=== PATIENT | female | born 1945 | race Caucasian/White ===

== ENCOUNTER 2017-04-28 05:59 | Inpatient (IN) | payer MEDICARE, OTHER, MEDICAID ==
[2017-04-28] MEDS: CEFAZOLIN 2 GM/50 ML (PMX) 50 ML IVPB (05:30)
[~2017-04-28 05:59] MED LIST: LACTATED RINGER'S 1,000 ML IV*; SOD CHLORIDE 0.9% 1,000 ML IV
[2017-04-28] MEDS ORDERED: EPHEDrine SULFATE 50 MG/5 ML SYG (07:00)
[2017-04-28] MEDS ORDERED: ROCURONIUM 50 MG INJ (07:00)
[2017-04-28] MEDS ORDERED: POLYMYXIN B 500000 UNIT INJ (07:01)
[2017-04-28] MEDS ORDERED: POLYMYXIN/BACITRACIN 1L IRRIG (07:08)
[2017-04-28] MEDS ORDERED: CEFAZOLIN 1 GM INJ (07:22)
[2017-04-28] MEDS ORDERED: PROPOFOL 20 ML (07:22)
[2017-04-28] MEDS ORDERED: morphine SULFATE/PF (10 MG/10 ML) INJ (07:22)
[2017-04-28] MEDS ORDERED: MIDAZOLAM 1 MG/ML 2 ML INJ (07:23)
[2017-04-28] MEDS ORDERED: PHENYLephrine (100 MCG/ML) 5ML SYG ×2 (07:50→08:15)
[2017-04-28] MEDS ORDERED: HETASTARCH 6% NACL 500 ML (08:15)
[2017-04-28] MEDS: POLYMYXIN/BACITRACIN 1L IRRIG IRR (08:20)
[2017-04-28] MEDS: POLYMYXIN B 500000 UNIT INJ IRR (08:20)
[2017-04-28] MEDS: BACITRACIN 50000 UNITS INJ IRR (08:20)
[2017-04-28] MEDS: HIP PAIN COCKTAIL (CEFUROXIME) INJ ×2 (08:30→10:00)
[2017-04-28] MEDS: TRANEXAMIC ACID 1,000 MG in DEXTROSE 5% 100 ML IV ×4 (08:30→10:50)
[2017-04-28] MEDS ORDERED: METOCLOPRAMIDE 10 MG INJ (09:29)
[2017-04-28] MEDS ORDERED: DEXAMETHASONE 4 MG/ML 1 ML INJ (09:29)
[2017-04-28] MEDS ORDERED: KETOROLAC 30 MG INJ (09:29)
[2017-04-28] MEDS ORDERED: ONDANSETRON 4 MG INJ (09:29)
[2017-04-28] MEDS ORDERED: ACETAMINOPHEN 1000MG/100ML IV 100 ML (09:29)
[2017-04-28] MEDS ORDERED: SUGAMMADEX SODIUM 200 MG/2 ML VIAL IV (10:19)
[2017-04-28] MEDS: SOD CHLORIDE 0.9% 1,000 ML IV ×2 (10:55→12:49)
[2017-04-28] MEDS ORDERED: morphine 2 MG INJ IV ×2 (11:00)
[2017-04-28] MEDS ORDERED: ZOLPIDEM 5 MG TAB PO (11:00)
[2017-04-28] MEDS ORDERED: SENNA/DOCUSATE NA (8.6MG/50MG) TAB PO (11:00)
[2017-04-28] MEDS ORDERED: EPHEDrine SULFATE 50 MG/5 ML SYG IV (11:00)
[2017-04-28] MEDS ORDERED: HYDROmorphONE 0.5 MG/0.5 ML SYG IV ×2 (11:00)
[2017-04-28] MEDS ORDERED: NALBUPHINE HCL (10 MG/1 ML) INJ IV (11:00)
[2017-04-28] MEDS ORDERED: NA PHOSPHATE/BIPHOS 133 ML ENEMA PR (11:00)
[2017-04-28] MEDS ORDERED: NACL 0.9% 3 ML SYG IV (11:00)
[2017-04-28] MEDS ORDERED: MEPERIDINE 25 MG INJ IV (11:00)
[2017-04-28] MEDS ORDERED: HYDROCODONE/APAP (5/325) TAB PO (11:00)
[2017-04-28] MEDS ORDERED: ONDANSETRON 4 MG INJ IV ×3 (11:00)
[2017-04-28] MEDS ORDERED: LABETALOL HCL 20MG INJ IV (11:00)
[2017-04-28] MEDS ORDERED: ACETAMINOPHEN 500 MG TAB PO (11:00)
[2017-04-28] MEDS ORDERED: DIPHENHYDRAMINE 50 MG INJ IM (11:00)
[2017-04-28] MEDS ORDERED: oxyCODONE 5 MG TAB PO ×2 (11:00)
[2017-04-28] MEDS ORDERED: NALOXONE (0.4 MG/ML) INJ IV ×2 (11:00)
[2017-04-28] MEDS ORDERED: ALBUMIN HUMAN 5% 250 ML IV (11:00)
[2017-04-28] MEDS ORDERED: CEFAZOLIN 1 GM/50 ML (PMX) 50 ML IVPB (11:00)
[2017-04-28] MEDS ORDERED: DIPHENHYDRAMINE 50 MG INJ IV ×2 (11:00)
[2017-04-28] MEDS: KETOROLAC 30 MG INJ IV ×2 (11:00→17:56)
[2017-04-28] MEDS ORDERED: DIPHENHYDRAMINE 25 MG CAP PO (11:00)
[2017-04-28] MEDS ORDERED: HYDROmorphONE (0.2 MG/ML) 10ML SYG IV ×3 (11:00)
[2017-04-28] MEDS ORDERED: MAGNESIUM HYDROXIDE 30ML CUP PO (11:00)
[2017-04-28] MEDS ORDERED: hydrALAzine 20 MG INJ IV ×2 (11:00→15:00)
[2017-04-28] MEDS: ONDANSETRON 4 MG INJ IV ×3 (11:00→23:03)
[2017-04-28] MEDS ORDERED: FENTAnyl 50 MCG/ML VIAL IV ×3 (11:00)
[2017-04-28] MEDS: ASPIRIN (EC) 325 MG TAB PO (11:32)
[2017-04-28] MEDS: DOCUSATE SODIUM 100 MG CAP PO (11:34)
[2017-04-28] MEDS: CEFAZOLIN 1 GM/50 ML (PMX) 50 ML IVPB ×2 (11:35→19:00)
[2017-04-28 11:36] LABS: HEMATOCRIT 29.4 % (37.0-47.0); HEMOGLOBIN 9.2 g/dl (12.0-16.0)
[2017-04-28 12:14] LABS: ANION GAP 12 (8-16); BLOOD UREA NITROGEN 26 mg/dl (7-20); CALCIUM 8.4 mg/dl (8.4-10.2); CARBON DIOXIDE 26 mmol/L (21-31); CHLORIDE 107 mmol/L (97-110); CREATININE 0.66 mg/dl (0.44-1.00); GLUCOSE 123 mg/dl (70-220); SODIUM 141 mmol/L (135-144)
[2017-04-28] MEDS ORDERED: ROPIVACAINE 0.5 % 30 ML VIAL (12:20)
[2017-04-28] MEDS: HYDROCODONE/APAP (5/325) TAB PO (12:48)
[2017-04-28] MEDS: GABAPENTIN 100 MG CAP GTB ×2 (13:27→20:19)
[2017-04-28] MEDS: oxyCODONE 5 MG TAB PO ×4 (13:27→23:06)
[2017-04-28] MEDS: traMADol 50 MG TAB PO ×2 (14:52→21:50)
[2017-04-28] MEDS: CELECOXIB 200 MG CAP PO (20:19)
[2017-04-28] MEDS ORDERED: ASPIRIN (EC) 325 MG TAB PO (21:00)
[2017-04-29] MEDS: oxyCODONE 5 MG TAB PO ×5 (02:11→21:30)
[2017-04-29] MEDS: KETOROLAC 30 MG INJ IV ×2 (02:11→09:57)
[2017-04-29] MEDS: SOD CHLORIDE 0.9% 1,000 ML IV ×2 (02:11→13:33)
[2017-04-29] MEDS: CEFAZOLIN 1 GM/50 ML (PMX) 50 ML IVPB (02:21)
[2017-04-29] MEDS: ONDANSETRON 4 MG INJ IV (05:04)
[2017-04-29] MEDS: PANTOPRAZOLE (EC) 40 MG TAB PO (05:04)
[2017-04-29 05:37] LABS: ADD MAN DIFF? NO
[2017-04-29 05:43] LABS: WHITE BLOOD COUNT 7.9 10^3/ul (4.8-10.8)
[2017-04-29 05:43] LABS: BASOPHILS % 0.1 % (0.0-2.0); HEMATOCRIT 25.2 % (37.0-47.0); LYMPHOCYTES % 12.8 % (15.0-51.0); MEAN CORPUSCULAR HEMOGLOBIN 26.7 pg (29.0-33.0); MEAN CORPUSCULAR HGB CONC 31.7 g/dl (32.0-37.0); MEAN PLATELET VOLUME 11.3 fl (7.4-10.4); MONOCYTE # 0.9 10^3/ul (0.3-0.9); MONOCYTES % 11.5 % (0.0-11.0); NEUTROPHIL # 5.9 10^3/ul (1.6-7.5); NEUTROPHILS % 75.3 % (39.0-77.0); PLATELET COUNT 147 10^3/UL (140-415); RED CELL DISTRIBUTION WIDTH 14.5 % (11.5-14.5)
[2017-04-29] MEDS ORDERED: KETOROLAC 15 MG INJ INJ (06:00)
[2017-04-29] MEDS: BETHANECHOL 25 MG TAB PO (06:09)
[2017-04-29 06:15] LABS: ANION GAP 12 (8-16); BLOOD UREA NITROGEN 19 mg/dl (7-20); CALCIUM 7.8 mg/dl (8.4-10.2); CARBON DIOXIDE 26 mmol/L (21-31); CHLORIDE 105 mmol/L (97-110); CREATININE 0.66 mg/dl (0.44-1.00); GLUCOSE 131 mg/dl (70-220); POTASSIUM 3.8 mmol/L (3.5-5.1); SODIUM 139 mmol/L (135-144)
[2017-04-29] MEDS: CELECOXIB 200 MG CAP PO ×2 (08:04→21:04)
[2017-04-29] MEDS: GABAPENTIN 100 MG CAP GTB ×3 (08:04→21:04)
[2017-04-29] MEDS: traMADol 50 MG TAB PO (08:05)
[2017-04-29] MEDS: METOPROLOL 50 MG TAB PO (09:00)
[2017-04-29] MEDS ORDERED: CELECOXIB 200 MG CAP PO (09:00)
[2017-04-29] MEDS: DOCUSATE SODIUM 100 MG CAP PO ×2 (09:10→21:04)
[2017-04-29] MEDS: FERROUS FUMARATE (SR) TAB PO ×2 (09:10→21:04)
[2017-04-29] MEDS: ASPIRIN (EC) 325 MG TAB PO (09:10)
[2017-04-29 10:25] LABS: ADD UMIC NO; UR ASCORBIC ACID NEGATIVE (NEGATIVE); UR BILIRUBIN (Dip) NEGATIVE (NEGATIVE); UR BLOOD (Dip) NEGATIVE (NEGATIVE); UR CLARITY CLEAR (CLEAR); UR COLOR YELLOW (YELLOW); UR GLUCOSE (Dip) NEGATIVE (NEGATIVE); UR KETONES (Dip) NEGATIVE (NEGATIVE); UR LEUKOCYTE ESTERASE (Dip) NEGATIVE Leu/ul (NEGATIVE); UR NITRITE (Dip) NEGATIVE (NEGATIVE); UR SPECIFIC GRAVITY (Dip) 1.011 (1.003-1.030); UR TOTAL PROTEIN (Dip) NEGATIVE (NEGATIVE); UR UROBILINOGEN (Dip) NEGATIVE (NEGATIVE)
[2017-04-29 17:03] LABS: HEMOGLOBIN A1C 6.1 % (0-5.9)
[2017-04-29 17:21] LABS: CHOL/HDL RATIO 2.5 RATIO; HDL CHOLESTEROL 39 mg/dl (33-92); LDL CHOLESTEROL,CALCULATED 44 mg/dl; TRIGLYCERIDES 74 mg/dl (0-149)
[2017-04-29 17:21] LABS: CHOLESTEROL 98 mg/dl (100-200)
[2017-04-29 18:09] LABS: IRON < 10 ug/dl (35-150)
[2017-04-29 18:16] LABS: TOTAL IRON BINDING CAPACITY 259 ug/dl (241-421)
[2017-04-29] MEDS: SOD CHLORIDE 0.9% 500 ML IV (23:05)
[2017-04-30 05:28] LABS: ADD MAN DIFF? NO
[2017-04-30 05:32] LABS: BASOPHILS % 0.4 % (0.0-2.0); EOSINOPHILS # 0.1 10^3/ul (0.0-0.5); EOSINOPHILS % 1.6 % (0.0-7.0); HEMATOCRIT 22.8 % (37.0-47.0); HEMOGLOBIN 7.2 g/dl (12.0-16.0); LYMPHOCYTES % 35.3 % (15.0-51.0); MEAN CORPUSCULAR HEMOGLOBIN 26.9 pg (29.0-33.0); MEAN CORPUSCULAR HGB CONC 31.6 g/dl (32.0-37.0); MEAN CORPUSCULAR VOLUME 85.1 fl (82.0-101.0); MEAN PLATELET VOLUME 11.4 fl (7.4-10.4); MONOCYTE # 0.6 10^3/ul (0.3-0.9); MONOCYTES % 10.8 % (0.0-11.0); NEUTROPHIL # 2.9 10^3/ul (1.6-7.5); NEUTROPHILS % 51.5 % (39.0-77.0); PLATELET COUNT 120 10^3/UL (140-415); RED BLOOD COUNT 2.68 10^6/ul (4.20-5.40); RED CELL DISTRIBUTION WIDTH 15.2 % (11.5-14.5)
[2017-04-30 05:32] LABS: WHITE BLOOD COUNT 5.5 10^3/ul (4.8-10.8)
[2017-04-30 05:58] LABS: ANION GAP 9 (8-16); BLOOD UREA NITROGEN 15 mg/dl (7-20); CALCIUM 7.8 mg/dl (8.4-10.2); CARBON DIOXIDE 27 mmol/L (21-31); CHLORIDE 110 mmol/L (97-110); CREATININE 0.73 mg/dl (0.44-1.00); GLUCOSE 103 mg/dl (70-220); POTASSIUM 3.6 mmol/L (3.5-5.1); SODIUM 142 mmol/L (135-144)
[2017-04-30] MEDS: PANTOPRAZOLE (EC) 40 MG TAB PO (06:47)
[2017-04-30] MEDS: oxyCODONE 5 MG TAB PO ×3 (06:48→16:13)
[2017-04-30] MEDS: ASPIRIN (EC) 325 MG TAB PO (08:58)
[2017-04-30] MEDS: GABAPENTIN 100 MG CAP GTB ×2 (08:58→12:08)
[2017-04-30] MEDS: CELECOXIB 200 MG CAP PO ×2 (08:58→20:14)
[2017-04-30] MEDS: DOCUSATE SODIUM 100 MG CAP PO ×2 (08:58→20:14)
[2017-04-30] MEDS: FERROUS FUMARATE (SR) TAB PO ×2 (08:58→20:14)
[2017-04-30] MEDS: METOPROLOL 50 MG TAB PO (08:59)
[2017-04-30 12:43] LABS: IMMEDIATE SPIN CROSSMATCH 1 1
[2017-04-30] MEDS: traMADol 50 MG TAB PO (15:31)
[2017-04-30] MEDS ORDERED: HYDROCODONE/APAP (5/325) TAB PO ×2 (17:00→17:30)
[2017-04-30] MEDS: KETOROLAC 15 MG INJ IV (20:13)
[2017-04-30] MEDS: BISACODYL 10 MG SUPP PR (20:14)
[2017-04-30] MEDS ORDERED: OXYCODONE/ACETAMINOPHEN (5/325) TAB PO (20:30)
[2017-04-30] MEDS: OXYCODONE/ACETAMINOPHEN (5/325) TAB PO (22:27)
[2017-05-01] MEDS: PANTOPRAZOLE (EC) 40 MG TAB PO (05:00)
[2017-05-01] MEDS: KETOROLAC 15 MG INJ IV ×2 (05:00→13:49)
[2017-05-01 05:21] LABS: ADD MAN DIFF? NO
[2017-05-01 05:35] LABS: WHITE BLOOD COUNT 6.8 10^3/ul (4.8-10.8)
[2017-05-01 05:35] LABS: BASOPHILS % 0.1 % (0.0-2.0); EOSINOPHILS # 0.1 10^3/ul (0.0-0.5); EOSINOPHILS % 1.9 % (0.0-7.0); HEMATOCRIT 27.3 % (37.0-47.0); HEMOGLOBIN 8.7 g/dl (12.0-16.0); LYMPHOCYTES # 1.9 10^3/ul (0.8-2.9); LYMPHOCYTES % 28.1 % (15.0-51.0); MEAN CORPUSCULAR HEMOGLOBIN 26.9 pg (29.0-33.0); MEAN CORPUSCULAR HGB CONC 31.9 g/dl (32.0-37.0); MEAN CORPUSCULAR VOLUME 84.5 fl (82.0-101.0); MEAN PLATELET VOLUME 11.2 fl (7.4-10.4); MONOCYTE # 0.8 10^3/ul (0.3-0.9); MONOCYTES % 12.4 % (0.0-11.0); NEUTROPHIL # 3.9 10^3/ul (1.6-7.5); NEUTROPHILS % 57.2 % (39.0-77.0); PLATELET COUNT 151 10^3/UL (140-415); RED BLOOD COUNT 3.23 10^6/ul (4.20-5.40); RED CELL DISTRIBUTION WIDTH 14.8 % (11.5-14.5)
[2017-05-01 06:17] LABS: ANION GAP 10 (8-16); BLOOD UREA NITROGEN 13 mg/dl (7-20); CALCIUM 8.1 mg/dl (8.4-10.2); CARBON DIOXIDE 28 mmol/L (21-31); CHLORIDE 107 mmol/L (97-110); CREATININE 0.57 mg/dl (0.44-1.00); GLUCOSE 117 mg/dl (70-220); POTASSIUM 4.2 mmol/L (3.5-5.1); SODIUM 141 mmol/L (135-144)
[2017-05-01] MEDS: DOCUSATE SODIUM 100 MG CAP PO ×2 (09:03→20:11)
[2017-05-01] MEDS: FERROUS FUMARATE (SR) TAB PO ×2 (09:03→20:11)
[2017-05-01] MEDS: CELECOXIB 200 MG CAP PO ×2 (09:03→20:11)
[2017-05-01] MEDS: ASPIRIN (EC) 325 MG TAB PO (09:03)
[2017-05-01] MEDS: METOPROLOL 50 MG TAB PO (09:05)
[2017-05-01] MEDS: OXYCODONE/ACETAMINOPHEN (5/325) TAB PO (14:34)
[2017-05-01] MEDS: traMADol 50 MG TAB PO (19:36)
== END 2017-05-01 22:00 | disposition home health service (06) | DRG 470 ==
LOC: REC 05:59 → MS1 04-29 08:33
PROC: 0SRB04A Replacement of Left Hip Joint with Ceramic on Polyethylene Synthetic Substitute, Uncemented, Open Approach (ICD-10-PCS; principal; 2017-04-28 07:30)
PROC: 30233N1 Transfusion of Nonautologous Red Blood Cells into Peripheral Vein, Percutaneous Approach (ICD-10-PCS; 2017-04-28 07:30)
DX: M16.12 Unilateral primary osteoarthritis, left hip (principal); G62.9 Polyneuropathy, unspecified; D64.9 Anemia, unspecified; I10 Essential (primary) hypertension
CPT/HCPCS: 36430; 72170; 73530; 80048; 80061; 81003; 83036; 83540; 84443; 85014; 85018; 85025; 86850; 86900; 86901; 86920; 87081; 87086; 88304; 88311; 97110; 97116; 97163; 97530; 97535

== ENCOUNTER 2017-09-22 05:46 | Observation (INO) | payer MEDICARE, OTHER ==
[2017-09-22] MEDS: DEXAMETHASONE 4 MG/ML 1 ML INJ IV (06:28)
[2017-09-22] MEDS: oxyCODONE (CR) 10 MG TAB [oxyCONTIN] PO (06:28)
[2017-09-22] MEDS: LANSOPRAZOLE 30 MG CAP PO (06:28)
[2017-09-22] MEDS: ONDANSETRON 4 MG INJ IV ×4 (06:28→20:25)
[2017-09-22] MEDS: ACETAMINOPHEN 1000MG/100ML IV 100 ML IVPB (06:29)
[2017-09-22] MEDS: HIP PAIN COCKTAIL (CEFUROXIME) INJ ×2 (06:30→08:39)
[2017-09-22] MEDS: LACTATED RINGER'S 1,000 ML IV* ×2 (06:30→14:30)
[2017-09-22] MEDS: SOD CHLORIDE 0.9% 1,000 ML IV ×2 (07:32→16:56)
[2017-09-22] MEDS ORDERED: morphine SULFATE/PF (10 MG/10 ML) INJ (07:34)
[2017-09-22] MEDS ORDERED: BUPIVACAINE 0.75%/DEXT (SPINAL) 2 ML INJ (07:34)
[2017-09-22] MEDS ORDERED: MIDAZOLAM 1 MG/ML 2 ML INJ (07:36)
[2017-09-22] MEDS ORDERED: oxyCODONE 5 MG TAB PO (08:00)
[2017-09-22] MEDS ORDERED: NALOXONE (0.4 MG/ML) INJ IV (08:00)
[2017-09-22] MEDS ORDERED: SENNA/DOCUSATE NA (8.6MG/50MG) TAB PO (08:00)
[2017-09-22] MEDS ORDERED: BISACODYL 10 MG SUPP PR (08:00)
[2017-09-22] MEDS: TRANEXAMIC ACID 1,000 MG in NS 100 ML PRE-OP X1 IVPB (08:20)
[2017-09-22] MEDS ORDERED: PROPOFOL 20 ML (08:24)
[2017-09-22] MEDS ORDERED: SUCCINYLCHOLINE CHLORIDE 100 MG/5 ML SYG IV (08:24)
[2017-09-22] MEDS ORDERED: ROCURONIUM 50 MG INJ (08:24)
[2017-09-22] MEDS ORDERED: CEFAZOLIN 1 GM INJ (08:25)
[2017-09-22] MEDS ORDERED: SUGAMMADEX SODIUM 200 MG/2 ML VIAL IV (08:29)
[2017-09-22] MEDS ORDERED: LIDOCAINE 1% (MDV) 20 ML INJ (08:29)
[2017-09-22] MEDS: POLYMYXIN B 500000 UNIT INJ (08:39)
[2017-09-22] MEDS: BACITRACIN 50000 UNITS INJ (08:39)
[2017-09-22] MEDS: POLYMYXIN/BACITRACIN 1L IRRIG IRR (08:40)
[2017-09-22] MEDS ORDERED: METOCLOPRAMIDE 10 MG INJ IV (09:00)
[2017-09-22] MEDS ORDERED: FENTAnyl 50 MCG/ML VIAL IV (09:00)
[2017-09-22] MEDS ORDERED: ALBUTEROL 0.083% (NEB) 2.5 MG/3 ML AMP HHN (09:00)
[2017-09-22] MEDS ORDERED: ONDANSETRON 4 MG INJ IV (09:00)
[2017-09-22] MEDS: ASPIRIN (EC) 325 MG TAB PO ×3 (09:00→20:25)
[2017-09-22] MEDS ORDERED: HYDROmorphONE 1 MG/5 ML IV SYRINGE IV (09:00)
[2017-09-22] MEDS ORDERED: MEPERIDINE 25 MG INJ IV (09:00)
[2017-09-22] MEDS: TRANEXAMIC ACID 1,000 MG in NS 100 ML INTRA-OP X1 IVPB (09:26)
[2017-09-22] MEDS: HYDROmorphONE 1 MG/5 ML IV SYRINGE IV ×4 (10:34→11:14)
[2017-09-22] MEDS: CEFAZOLIN 2 GM/50 ML (PMX) 50 ML IVPB (10:45)
[2017-09-22] MEDS: DOCUSATE SODIUM 100 MG CAP PO (10:46)
[2017-09-22] MEDS: CEFAZOLIN 1 GM/50 ML (PMX) 50 ML IVPB ×3 (10:46→23:31)
[2017-09-22] MEDS: FENTAnyl 50 MCG/ML VIAL IV ×2 (10:51→11:01)
[2017-09-22] MEDS: DIPHENHYDRAMINE 50 MG INJ IV (11:26)
[2017-09-22] MEDS ORDERED: HYDROmorphONE 1 MG/ML SYG (11:31)
[2017-09-22] MEDS: HYDROmorphONE 1 MG/ML SYG IV (11:33)
[2017-09-22] MEDS: KETOROLAC 15 MG INJ IV ×2 (13:06→19:28)
[2017-09-22] MEDS: oxyCODONE 5 MG TAB PO ×2 (15:42→20:25)
[2017-09-23] MEDS: ONDANSETRON 4 MG INJ IV (01:39)
[2017-09-23] MEDS: oxyCODONE 5 MG TAB PO ×7 (01:39→22:45)
[2017-09-23] MEDS: KETOROLAC 15 MG INJ IV ×4 (04:59→23:41)
[2017-09-23 05:52] LABS: ADD MAN DIFF? NO
[2017-09-23 06:09] LABS: BASOPHILS % 0.1 % (0.0-2.0); HEMATOCRIT 28.3 % (37.0-47.0); LYMPHOCYTES # 2.1 10^3/ul (0.8-2.9); LYMPHOCYTES % 27.1 % (15.0-51.0); MEAN CORPUSCULAR HEMOGLOBIN 26.4 pg (29.0-33.0); MEAN CORPUSCULAR HGB CONC 31.8 g/dl (32.0-37.0); MEAN PLATELET VOLUME 11.1 fl (7.4-10.4); MONOCYTES % 12.8 % (0.0-11.0); NEUTROPHIL # 4.5 10^3/ul (1.6-7.5); NEUTROPHILS % 59.5 % (39.0-77.0); PLATELET COUNT 180 10^3/UL (140-415); RED BLOOD COUNT 3.41 10^6/ul (4.20-5.40); RED CELL DISTRIBUTION WIDTH 15.2 % (11.5-14.5)
[2017-09-23 06:09] LABS: WHITE BLOOD COUNT 7.6 10^3/ul (4.8-10.8)
[2017-09-23 06:18] LABS: CHOLESTEROL 92 mg/dl (100-200)
[2017-09-23 06:18] LABS: ANION GAP 9 (8-16); BLOOD UREA NITROGEN 17 mg/dl (7-20); CALCIUM 8.2 mg/dl (8.4-10.2); CARBON DIOXIDE 29 mmol/L (21-31); CHLORIDE 109 mmol/L (97-110); CHOL/HDL RATIO 2.7 RATIO; CREATININE 0.66 mg/dl (0.44-1.00); GLUCOSE 110 mg/dl (70-220); HDL CHOLESTEROL 34 mg/dl (33-92); LDL CHOLESTEROL,CALCULATED 45 mg/dl; POTASSIUM 4.4 mmol/L (3.5-5.1); SODIUM 143 mmol/L (135-144); TRIGLYCERIDES 63 mg/dl (0-149)
[2017-09-23 06:48] LABS: THYROID STIMULATING HORMONE 0.451 MIU/L (0.465-4.680)
[2017-09-23 07:08] LABS: HEMOGLOBIN A1C 6.3 % (0-5.9)
[2017-09-23] MEDS: SOD CHLORIDE 0.9% 1,000 ML IV ×2 (08:32→21:02)
[2017-09-23] MEDS ORDERED: CELECOXIB 100 MG CAP PO (09:00)
[2017-09-23] MEDS: ASPIRIN (EC) 325 MG TAB PO ×2 (09:10→21:07)
[2017-09-23] MEDS: DOCUSATE SODIUM 100 MG CAP PO ×2 (09:11→21:05)
[2017-09-23] MEDS: FERROUS FUMARATE (SR) TAB PO ×2 (09:12→21:07)
[2017-09-23] MEDS: CELECOXIB 200 MG CAP PO ×2 (09:14→21:07)
[2017-09-23] MEDS: METOPROLOL (XL) 50 MG TAB PO (09:16)
[2017-09-23 10:25] LABS: ADD UMIC NO; UR ASCORBIC ACID NEGATIVE (NEGATIVE); UR BILIRUBIN (Dip) NEGATIVE (NEGATIVE); UR BLOOD (Dip) NEGATIVE (NEGATIVE); UR CLARITY CLEAR (CLEAR); UR COLOR YELLOW (YELLOW); UR GLUCOSE (Dip) NEGATIVE (NEGATIVE); UR KETONES (Dip) NEGATIVE (NEGATIVE); UR LEUKOCYTE ESTERASE (Dip) NEGATIVE Leu/ul (NEGATIVE); UR NITRITE (Dip) NEGATIVE (NEGATIVE); UR SPECIFIC GRAVITY (Dip) 1.026 (1.003-1.030); UR TOTAL PROTEIN (Dip) NEGATIVE (NEGATIVE); UR UROBILINOGEN (Dip) NEGATIVE (NEGATIVE)
[2017-09-23] MEDS: BETHANECHOL 25 MG TAB PO (10:28)
[2017-09-23] MEDS: LIDOCAINE/MYLANTA 40 ML BTL PO (12:55)
[2017-09-23] MEDS: MAGNESIUM HYDROXIDE 30ML CUP PO (17:27)
[2017-09-23] MEDS: SENNA/DOCUSATE NA (8.6MG/50MG) TAB PO (21:05)
[2017-09-23] MEDS: AL HYDROX/MG HYDROX/SIMETH 30 ML CUP PO (23:41)
[2017-09-23] MEDS: PANTOPRAZOLE (EC) 40 MG TAB PO (23:41)
[2017-09-24] MEDS: oxyCODONE 5 MG TAB PO ×7 (01:43→21:37)
[2017-09-24] MEDS: AL HYDROX/MG HYDROX/SIMETH 30 ML CUP PO (04:38)
[2017-09-24] MEDS: NA PHOSPHATE/BIPHOS 133 ML ENEMA PR (04:58)
[2017-09-24] MEDS: PANTOPRAZOLE (EC) 40 MG TAB PO (05:43)
[2017-09-24 05:51] LABS: ADD MAN DIFF? NO
[2017-09-24 06:32] LABS: ANION GAP 10 (8-16); BLOOD UREA NITROGEN 15 mg/dl (7-20); CALCIUM 8.6 mg/dl (8.4-10.2); CARBON DIOXIDE 27 mmol/L (21-31); CHLORIDE 110 mmol/L (97-110); CREATININE 0.69 mg/dl (0.44-1.00); GLUCOSE 84 mg/dl (70-220); POTASSIUM 3.8 mmol/L (3.5-5.1); SODIUM 143 mmol/L (135-144)
[2017-09-24] MEDS: METOPROLOL (XL) 50 MG TAB PO (08:35)
[2017-09-24] MEDS: FERROUS FUMARATE (SR) TAB PO ×2 (08:36→20:15)
[2017-09-24] MEDS: CELECOXIB 200 MG CAP PO ×2 (08:36→20:16)
[2017-09-24] MEDS: ASPIRIN (EC) 325 MG TAB PO ×2 (08:38→20:15)
[2017-09-24] MEDS: SENNA/DOCUSATE NA (8.6MG/50MG) TAB PO ×2 (09:00→21:00)
[2017-09-24] MEDS: DOCUSATE SODIUM 100 MG CAP PO ×2 (09:00→21:00)
[2017-09-24] MEDS: SOD CHLORIDE 0.9% 1,000 ML IV ×2 (09:32→21:03)
[2017-09-24 11:02] LABS: WHITE BLOOD COUNT 7.4 10^3/ul (4.8-10.8)
[2017-09-24 11:02] LABS: BASOPHILS % 0.4 % (0.0-2.0); EOSINOPHILS % 0.4 % (0.0-7.0); HEMOGLOBIN 9.8 g/dl (12.0-16.0); LYMPHOCYTES # 1.6 10^3/ul (0.8-2.9); LYMPHOCYTES % 21.9 % (15.0-51.0); MEAN CORPUSCULAR HEMOGLOBIN 25.7 pg (29.0-33.0); MEAN CORPUSCULAR HGB CONC 31.6 g/dl (32.0-37.0); MEAN CORPUSCULAR VOLUME 81.4 fl (82.0-101.0); MEAN PLATELET VOLUME 10.5 fl (7.4-10.4); NEUTROPHIL # 4.7 10^3/ul (1.6-7.5); NEUTROPHILS % 63.8 % (39.0-77.0); PLATELET COUNT 183 10^3/UL (140-415); RED BLOOD COUNT 3.81 10^6/ul (4.20-5.40); RED CELL DISTRIBUTION WIDTH 15.1 % (11.5-14.5)
[2017-09-24] MEDS: DIPHENHYDRAMINE 50 MG INJ IV (20:16)
[2017-09-24] MEDS: KETOROLAC 15 MG INJ IV (23:41)
[2017-09-25] MEDS: oxyCODONE 5 MG TAB PO ×5 (02:16→16:59)
[2017-09-25 04:56] LABS: ADD MAN DIFF? NO
[2017-09-25 05:03] LABS: WHITE BLOOD COUNT 5.6 10^3/ul (4.8-10.8)
[2017-09-25 05:03] LABS: BASOPHILS % 0.2 % (0.0-2.0); EOSINOPHILS # 0.1 10^3/ul (0.0-0.5); EOSINOPHILS % 1.4 % (0.0-7.0); HEMATOCRIT 28.8 % (37.0-47.0); HEMOGLOBIN 9.1 g/dl (12.0-16.0); LYMPHOCYTES # 2.1 10^3/ul (0.8-2.9); LYMPHOCYTES % 37.7 % (15.0-51.0); MEAN CORPUSCULAR HEMOGLOBIN 26.4 pg (29.0-33.0); MEAN CORPUSCULAR HGB CONC 31.6 g/dl (32.0-37.0); MEAN CORPUSCULAR VOLUME 83.5 fl (82.0-101.0); MEAN PLATELET VOLUME 10.9 fl (7.4-10.4); MONOCYTE # 0.7 10^3/ul (0.3-0.9); MONOCYTES % 13.1 % (0.0-11.0); NEUTROPHIL # 2.7 10^3/ul (1.6-7.5); NEUTROPHILS % 47.4 % (39.0-77.0); PLATELET COUNT 160 10^3/UL (140-415); RED BLOOD COUNT 3.45 10^6/ul (4.20-5.40); RED CELL DISTRIBUTION WIDTH 15.4 % (11.5-14.5)
[2017-09-25 05:27] LABS: ANION GAP 14 (8-16); BLOOD UREA NITROGEN 12 mg/dl (7-20); CALCIUM 8.3 mg/dl (8.4-10.2); CARBON DIOXIDE 27 mmol/L (21-31); CHLORIDE 104 mmol/L (97-110); CREATININE 0.61 mg/dl (0.44-1.00); GLUCOSE 107 mg/dl (70-220); POTASSIUM 4.2 mmol/L (3.5-5.1); SODIUM 141 mmol/L (135-144)
[2017-09-25] MEDS: PANTOPRAZOLE (EC) 40 MG TAB PO (05:52)
[2017-09-25] MEDS: DOCUSATE SODIUM 100 MG CAP PO (09:00)
[2017-09-25] MEDS: METOPROLOL (XL) 50 MG TAB PO (09:00)
[2017-09-25] MEDS: SENNA/DOCUSATE NA (8.6MG/50MG) TAB PO (09:00)
[2017-09-25] MEDS: CELECOXIB 200 MG CAP PO (09:03)
[2017-09-25] MEDS: ASPIRIN (EC) 325 MG TAB PO (09:03)
[2017-09-25] MEDS: AL HYDROX/MG HYDROX/SIMETH 30 ML CUP PO (09:07)
[2017-09-25] MEDS: FERROUS FUMARATE (SR) TAB PO (09:07)
[2017-09-25] MEDS: SOD CHLORIDE 0.9% 1,000 ML IV (10:32)
== END 2017-09-25 18:45 | disposition home health service (06) ==
LOC: REC 05:46 → MS1 12:48
DX: M17.11 Unilateral primary osteoarthritis, right knee (principal); I10 Essential (primary) hypertension; K21.9 Gastro-esophageal reflux disease without esophagitis; D62 Acute posthemorrhagic anemia; R73.03 Prediabetes; Z88.8 Allergy status to other drugs, medicaments and biological substances
CPT/HCPCS: 27447; 73560; 80048; 80061; 81003; 83036; 84443; 85025; 86850; 86900; 86901; 87081; 87086; 88304; 88311; 97110; 97116; 97162; 97165; 97530; 99217